=== PATIENT | female | born 1990 | race Caucasian/White ===

== ENCOUNTER 2017-08-20 20:33 | Emergency (ER) | payer BC ==
[2017-08-20 20:42] VITALS: RESP 16; TEMP 98.6
--- NOTE | 2017-08-20 21:00 | EDPHY ---
HPI/HX/ROS/PE/MDM Narrative: CHIEF COMPLAINT: Fell while 19 weeks HPI: The patient is a 19-week 27 y/o female arriving at the referral of her OBGYN after a mechanical fall 4 hours ago without associated injury. She says she was rushing and slipped on a tile floor causing her to fall on her buttocks. She did not strike her head or abdomen and denies any pain or injury from the fall. She messaged her OBGYN who told if she wanted to be careful she should go to the ED. She denies vaginal bleeding, cramping, or any other complaints. Rh type is positive per labs that patient has access to on her phone. REVIEW OF SYSTEMS: Aside from elements discussed in the HPI, a comprehensive 10-point review of systems was reviewed and is negative. PMH: Blood type is O+ SOCIAL HISTORY: Friend at bedside. PHYSICAL EXAM: General:Patient is alert, in no acute distress. ENT:Eyes are normal to inspection. ENT inspection normal. Neck: Normal inspection. Full range of motion. Respiratory:No respiratory distress. Breath sounds normal bilaterally. Cardiovascular: Regular rate and rhythm. Strong peripheral pulses. Normal cap refill. Abdomen:The abdomen is nontender to palpation. There are no peritoneal signs. Gravid uterus. No tenderness. Back: Normal to inspection. No tenderness to palpation. Skin: Normal color. No rash. Warm and dry. Extremities: Normal appearance. Full range of motion. Neuro: Oriented x3. Normal motor function. Normal sensory function. ED Course: This is a healthy 19-week 27 y/o female who presents for evaluation after a fall this evening. She has no complaints, but is here at the recommendation of her OBGYN to ensure there was no trauma to the fetus. A bedside US performed by myself revealed an IUP with normal movement and heart tones of 158. Rh positive so no RhoGAM indicated. She will be discharged home with standard follow up instructions. Strict return precautions discussed. She is comfortable with plan for discharge. Procedure: A limited transabdominal ultrasound was performed on this patient. The indication for the study was fall while 19 weeks . On the examination I found that there was an IUP with normal movement. heart tones were 158 beats per minute. I did not see a significant amount of free fluid in the pelvis. Results of the exam: Positive for IUP. The procedure was interpreted and performed by myself, Dr. Arias. General Time Seen by Provider: 08/20/17 20:53 Initial Vital Signs: Initial Vital Signs Temperature (C) 37.0 C 08/20/17 20:39 Heart Rate 91 08/20/17 20:39 Respiratory Rate 16 08/20/17 20:39 Blood Pressure 129/78 H 08/20/17 20:39 O2 Sat (%) 95 08/20/17 20:39 O2 Delivery Mode Room Air Allergies/Adverse Reactions: No Known Allergies Allergy (Unverified 08/20/17 20:39) Home Medications: Medication Instructions Recorded 08/20/17 Departure - Departure Disposition: Home, Routine, Self-Care Clinical Impression: 19 weeks gestation of , Fall Condition: Good Instructions: at 19 to 22 Weeks (ED) Additional Instructions: 1. Follow up with your OBGYN as planned. 2. Return to the ED for abdominal pain, vaginal bleeding, or any other worsening of condition. Referrals: Shira Casey RN [Registered Nurse] - As per Instructions Report Scribed for: Don Arias Report Scribed by: Shyann Vogel Date of Report: 08/20/17 Time of Report: 20:54 Physician Review and Approval Statement: Portions of this note were transcribed by an ED scribe. I personally performed the history, physical exam, and medical decision making; and confirm the accuracy of the information in the transcribed note.
[2017-08-20 21:11] VITALS: BP 136/87; PULSE 86; O2SAT 94
== END 2017-08-20 21:19 | disposition home or self-care (01) ==
DX: O9A.212 Injury, poisoning and certain other consequences of external causes complicating pregnancy, second trimester (principal); Z3A.19 19 weeks gestation of pregnancy; W01.0XXA Fall on same level from slipping, tripping and stumbling without subsequent striking against object, initial encounter